=== PATIENT | female | born 1980 | race Caucasian/White ===

== ENCOUNTER 2020-02-02 03:35 | Emergency (ER) | payer BC, SELFPAY ==
--- NOTE | ~2020-02-02 | CT_ITS ---
EXAMINATION: CT abdomen pelvis w con INDICATION: Right lower quadrant pain TECHNIQUE: Computed tomographic images of the abdomen and pelvis were obtained after the administrati on of 100 cc of Omnipaque 350 intravenous contrast. The dose-length product (DLP) was 293.85 mGy-cm. Automated exposure control and iterative reconstruction technique were employed. COMPARISON: 02/10/2017 FINDINGS: Minimal dependent atelectasis is present in the lung bases. The heart size is normal. Heman giomas of the left hepatic lobe measure up to 1.9 cm. The spleen, pancreas, gallbladder, and adrenal glands are normal. The kidneys are unremarkable. No pathologically enlarged abdominal or pelvic lymph nodes are identified. A large volume of colonic stool is present. There is no free intraperitoneal g as or evidence of bowel obstruction. The mobile cecum resides in the left lower quadrant. IMPRESSION: 1. Constipation. Reviewed, dictated and finalized at location A. IMPRESSION: 1. Constipation.
[2020-02-02 03:39] VITALS: BP 116/89; PULSE 87; RESP 20; TEMP 36.6; O2SAT 100
--- NOTE | 2020-02-02 03:55 | ED.ABDPAIN ---
HPI - Abdominal Pain General Chief Complaint: Abdominal Pain Stated Complaint: RLQ pain Time Seen by Provider: 02/02/20 03:46 Source: patient Mode of arrival: ambulatory Limitations: no limitations History of Present Illness HPI narrative: Patient is a 39-year-old female who presents to the emergency department with complaint of abdominal pain. Patient locates the pain in the right lower quadrant of her abdomen. She reports onset of symptoms at approximately 5 PM last night. She states the pain initially was sharp and is now more persistent and constant. Patient states it is tender to palpation. She denies any nausea, vomiting, or diarrhea. She reports constipation symptoms over the past couple of weeks, but her last bowel movement was yesterday. Patient denies any urinary symptoms and has had a complete hysterectomy. MD elicited complaint: abdominal pain Onset (ago): hour(s) Pain Consistency: constant Quality: aching and sharp Radiation: none Migration to: no migration Exacerbating factors: other (palpation) Associated symptoms: denies other symptoms Related Data Home Medications Medication Instructions Recorded Confirmed estradiol 1 patch TOPICAL WEEKLY 02/02/20 02/02/20 meloxicam 15 mg PO DAILY 02/02/20 02/02/20 Allergies Allergy/AdvReac Type Severity Reaction Status Date / Time No Known Allergies Allergy Verified 02/02/20 03:44 Review of Systems Review of Systems: All systems reviewed & are unremarkable except as noted in HPI and below Gastrointestinal: Gastrointestinal: Reports abdominal pain, Reports constipation, Denies diarrhea, Denies nausea and Denies vomiting Genitourinary: Genitourinary: Denies hematuria and Denies dysuria PMFSH Past Medical History Medical History (Updated 02/02/20 @ 05:32 by Yamilet Apodaca MD) Endometriosis Surgical History Surgical History (Updated 02/02/20 @ 04:06 by Yamilet Apodaca MD) History of total hysterectomy with bilateral salpingo-oophorectomy (BSO) History of tubal ligation Social History Social History (Updated 02/02/20 @ 04:07 by Yamilet Apodaca MD) Smoking status: Current some day smoker Tobacco type: cigarettes and e-cigarettes Gender identity (if verbalized by the patient): Female Exam Const: General: cooperative, no acute distress and alert Nutritional Appearance: well nourished Orientation/consciousness: patient oriented x3 Limitations: no limitations HENMT: Mouth: Yes lip normal and Yes moist mucous membranes Resp: Effort & Inspection: normal respiratory effort Auscultation: clear to auscultation bilaterally Cardio: Rate: regular rate Rhythm: regular rhythm GI: GI Palp: Yes Soft to palpation, Yes Tenderness to palpation present (GI) (Focal right lower quadrant), No Guarding due to palpation present (GI) and No Rebound tenderness present Auscultation: normal bowel sounds Skin: General skin exam: normal color Neuro: General: patient oriented x3 Cognition (Neuro): normal cognition Speech: normal speech Extrem: General: normal to inspection, full ROM and no clubbing, cyanosis or edema Psych: Mental Status: mental status grossly normal Affect: normal affect Attitude: cooperative Course Course Emergency Course: Patient with findings of constipation on CT scan. No evidence for appendicitis or other serious pathology. Labs unremarkable. Patient was sleeping quietly after CT scan and does report she feels a little bit better. Discussed management of constipation and advised primary care follow-up. Vital Signs Vital signs: Vital Signs Temperature 97.9 F 02/02/20 03:39 Pulse Rate 87 02/02/20 03:39 Respiratory Rate 20 02/02/20 03:39 Blood Pressure 116/89 02/02/20 03:39 Pulse Oximetry 100 02/02/20 03:39 Temperature 97.9 F 02/02/20 03:39 Pulse Rate 87 02/02/20 03:39 Respiratory Rate 20 02/02/20 03:39 Blood Pressure 116/89 02/02/20 03:39 Pulse Oximetry 100 02/02/20 03:39
[2020-02-02 04:11] LABS: Basophils Absolute Auto 0.1 K/mm3 (0.0-0.1); Eosinophils Absolute Auto 0.2 K/mm3 (0-0.3); Eosinophils Percent Auto 2.5 % (0-4.4); Hematocrit 41.1 % (37.0-47.0); Hemoglobin 13.3 g/dL (12.0-15.0); Immature Granulocyte Absolute 0.03 K/mm3 (0.00-0.031); Immature Granulocyte Percent A 0.4 % (0-0.5); Lymphocytes Absolute Auto 2.92 K/mm3 (0.9-3.2); Lymphocytes Percent Auto 36.4 % (18.3-44.2); Mean Corpuscular HGB Conc 32.4 g/dl (32-36); Mean Corpuscular Hemoglobin 31.2 pg (26-34); Mean Corpuscular Volume 96.5 fl (80-100); Mean Platelet Volume 10.3 fl (7.4-10.4); Monocytes Absolute Auto 0.6 K/mm3 (0.1-0.6); Monocytes Percent Auto 7.1 % (2.6-8.5); Neutrophils Absolute Auto 4.2 K/mm3 (1.3-6.7); Neutrophils Percent Auto 52.6 % (45.5-73.1); Platelet Count Result 365 k/mm3 (150-375); Red Blood Count 4.26 M/mm3 (4.2-5.4); Red Cell Distribution Width 13.8 % (11.5-14.5)
[2020-02-02 04:16] LABS: Add Urine Microscopic? YES; Appearance Urine Cloudy (Clear); Bacteria Urine Trace /hpf; Bilirubin Urine Negative (Negative); Blood Urine 1+ (Negative); Color Urine Yellow (Yellow); Glucose Urine UA Negative (Negative); Ketones Urine Negative (Negative); Leukocyte Esterase Ur Negative LEU/UL (Negative); Mucus Urine Few /lpf; Nitrate Urine Negative (Negative); Protein Urine Negative (Negative); Specific Grav Ur 1.018 (1.001-1.035); Squamous Epithelial Cell Urine Many /hpf (Few); Urobilinogen Urine Negative mg/dL (<2.0); WBC Urine 0-3 /hpf
[2020-02-02 04:27] LABS: Alanine Aminotransferase 32 U/L (4-35); Albumin Level 4.9 g/dL (3.5-5.1); Alkaline Phosphatase 44 U/L (38-126); Aspartate Amino Transferase 35 U/L (14-36); Bilirubin,Total 0.3 mg/dL (0.2-1.3); Blood Urea Nitrogen 13 mg/dL (7-17); Calcium 9.1 mg/dL (8.4-10.2); Carbon Dioxide 29 mmol/L (22-30); Chloride 108 mmol/L (98-107); Estimated Glomerular Filt Rate > 60; Glucose 88 mg/dL (65-105); Lipase 218 U/L (23-300); Potassium 4.5 mmol/L (3.4-5.0); Sodium 143 mmol/L (137-145)
[2020-02-02 05:42] VITALS: BP 100/74; PULSE 70; RESP 20; O2SAT 100
== END 2020-02-02 05:42 | disposition home or self-care (01) ==
PROVIDERS: Emergency Provider Emergency Medicine
DX: R10.31 Right lower quadrant pain (principal); K59.00 Constipation, unspecified; N80.9 Endometriosis, unspecified; F17.210 Nicotine dependence, cigarettes, uncomplicated
CPT/HCPCS: 36415; 74177; 80053; 81001; 83690; 85025; 99284; Q9967

== ENCOUNTER 2020-09-01 19:04 | Emergency (ER) | payer BC, SELFPAY ==
--- NOTE | ~2020-09-01 | XR_ITS ---
EXAMINATION: XR chest 1V portable DATE: 09/01/2020 19:55 INDICATION: Shortness of breath. Midsternal chest pain. TECHNIQUE: frontal view of the chest was obtained. COMPARISON: Chest radiograph dated 11/19/2018 FINDINGS: The lungs are clear with no focal airspace opacities, pulmonary edema, pleural effusion or pneumothor ax. The cardiomediastinal silhouette is normal. Visualized bones and soft tissues are unremarkable. IMPRESSION: 1. Normal chest radiograph. Reviewed, dictated and finalized at location H. PAPER PRINTER HELPER IMPRESSION: 1. Normal chest radiograph.
[2020-09-01 19:16] VITALS: BP 132/81; PULSE 93; RESP 20; TEMP 36.6; O2SAT 100
--- NOTE | 2020-09-01 19:30 | ED.SOB ---
HPI - SOB/Dyspnea General Chief Complaint: Shortness of Breath/Dyspnea Stated Complaint: sob, cp, waiting for covid test Time Seen by Provider: 09/01/20 19:23 History of Present Illness HPI Narrative: Cough, congestion, pleuritic chest pain for a few days. FRASER starting today. Her boyfriend tested positive for COVID-19. She has a COVID-19 test pending. Related Data Home Medications Medication Instructions Recorded Confirmed estradiol 1 patch TOPICAL WEEKLY 02/02/20 02/02/20 meloxicam 15 mg PO DAILY 02/02/20 02/02/20 Allergies Allergy/AdvReac Type Severity Reaction Status Date / Time No Known Allergies Allergy Verified 02/02/20 03:44 Review of Systems Review of Systems: All systems reviewed & are unremarkable except as noted in HPI and below Constitutional: Constitutional: Denies fever(s) ENT: Denies sore throat Cardiovascular: Cardiovascular: Reports chest pain Respiratory: Respiratory: Reports chest congestion, Reports cough and Reports dyspnea Gastrointestinal: Gastrointestinal: Denies nausea Genitourinary: Genitourinary: Denies dysuria Musculoskeletal: Musculoskeletal: Denies back pain Neurologic: Denies dizziness and Denies weakness [facility] Past Medical History Medical History Endometriosis Surgical History Surgical History History of total hysterectomy with bilateral salpingo-oophorectomy (BSO) History of tubal ligation Social History Social History Smoking status: Current some day smoker Tobacco type: cigarettes and e-cigarettes/vaping Gender identity (if verbalized by the patient): Female Exam Const: General: healthy appearing, no acute distress and alert Orientation/consciousness: patient oriented x3 HENMT: Head: normal to inspection Neck: Neck: normal visual inspection and no lymphadenopathy Chest: Chest palpation & inspection: no tenderness Resp: Effort & Inspection: normal respiratory effort Auscultation: clear to auscultation bilaterally, no rales, no rhonchi and no wheezes Cardio: Jugular venous distension: no JVD Rate: regular rate Rhythm: regular rhythm Heart sounds: no murmurs GI: Inspection: non-distended GI Palp: Yes Soft to palpation and No Tenderness to palpation present (GI) Skin: General skin exam: normal color Neuro: General: patient oriented x3 and moves all extremities Speech: normal speech Extrem: General: no edema Psych: Appearance: well kempt Affect: normal affect Course Vital Signs Vital signs: Vital Signs Temperature 36.6 C 09/01/20 19:16 Pulse Rate 93 09/01/20 19:16 Respiratory Rate 20 09/01/20 19:16 Blood Pressure 132/81 09/01/20 19:16 Pulse Oximetry 100 09/01/20 19:16 Temperature 36.6 C 09/01/20 19:16 Pulse Rate 83 09/01/20 21:24 Respiratory Rate 18 09/01/20 21:24 Blood Pressure 113/65 09/01/20 21:24 Pulse Oximetry 98 09/01/20 21:24 MDM - SOB/Dyspnea MDM Narrative Medical decision making narrative: She appears well with normal vitals and negative chest x-ray. I will discharge her home to wait for her test results. Medical Records Attestation: I reviewed the patient's medical records. Imaging Data Radiologist's impression: ITS Impressions Chest X-Ray 09/01/20 19:56 IMPRESSION: 1. Normal chest radiograph. Discharge Plan Discharge Clinical Impression: FRASER (dyspnea on exertion), Suspected 2019-nCoV infection Patient Disposition: Home, Self-Care Condition: Stable Instructions: COVID-19 (Coronavirus Disease 2019) (ED) Prescriptions: New dexamethasone 6 mg tablet 6 mg PO DAILY Qty: 10 RF: 0 No Action meloxicam 15 mg tablet 15 mg PO DAILY RF: 0 estradiol 0.05 mg/24 hr patch weekly 1 patch topical WEEKLY RF: 0 Follow-up/Referrals: PHYSICIAN NOT ON STAFF,NONST
--- NOTE | 2020-09-01 19:39 | ECG_ITS ---
Measurements Intervals [place] Rate: 86 P: 18 NM: 124 QRS: 27 QRSD: 80 T: 30 QT: 341 QTc: 409 Interpretive Statements SINUS RHYTHM BASELINE ARTIFACT- I, III, AVL, V3 NORMAL ECG Electronically Signed On 09-02-2020 7:23:06 CONTROL PANEL ASSEMBLER by Anil Dietrich D.O.
[2020-09-01 21:24] VITALS: BP 113/65; PULSE 83; RESP 18; O2SAT 98
== END 2020-09-01 21:25 | disposition home or self-care (01) ==
PROVIDERS: Emergency Provider Emergency Medicine
DX: R06.00 Dyspnea, unspecified (principal); Z20.828 Contact with and (suspected) exposure to other viral communicable diseases; N80.9 Endometriosis, unspecified; F17.210 Nicotine dependence, cigarettes, uncomplicated
CPT/HCPCS: 71045; 93005; 99283

== ENCOUNTER 2022-02-28 12:17 | Emergency (ER) | payer BC, SELFPAY ==
--- NOTE | ~2022-02-28 | XR_ITS ---
EXAMINATION: XR foot RT min 3V DATE: 02/28/2022 12:50 INDICATION: Right foot injury in the region of the metatarsals TECHNIQUE: Dorsoplantar, two oblique and lateral views of the right foot were obtained. COMPARISON: None. FINDINGS: Bone alignment is normal. No fracture. Mild osteoarthritis at the first metatarsophalangeal and a few interphalangeal joints. No erosions or periosteal reaction. Bunion with mild soft tissue thickening overlying the medial head of the first metatarsal. IMPRESSION: 1. No acute osseous abnormality. Reviewed, dictated and finalized at location B.
[2022-02-28 12:30] VITALS: BP 120/70; PULSE 88; RESP 18; TEMP 36.8; O2SAT 98
--- NOTE | 2022-02-28 12:31 | ED.LOWEXIN ---
HPI - Extremity Injury (Lower) General Chief Complaint: Extremity Injury, Lower Stated Complaint: Right Foot Pain Time Seen by Provider: 02/28/22 12:31 Source: patient, RN notes reviewed and old records reviewed Mode of arrival: ambulatory Limitations: no limitations History of Present Illness HPI Narrative: 41-year-old female presents to the [facility] with complaints of right dorsal aspect foot pain since 6 PM last night. Patient states that she was walking and wearing heels when she rolled her foot. States that she has fractured that foot before. Currently wearing a short leg boot that she had from a previous foot fracture per patient Related Data Home Medications Medication Instructions Recorded Confirmed estradiol [Lyllana] 1 patch TRANSDERMAL DIRECTED 02/28/22 02/28/22 Allergies Allergy/AdvReac Type Severity Reaction Status Date / Time No Known Allergies Allergy Verified 02/28/22 12:22 Review of Systems Review of Systems: All systems reviewed & are unremarkable except as noted in HPI and below Constitutional: Constitutional: Reports no additional constitutional complaints Eyes: Eyes: Reports no additional eye complaints ENT: Reports system reviewed and no additional complaints, except as documented Cardiovascular: Cardiovascular: Reports no additional cardiovascular complaints Respiratory: Respiratory: Reports no additional respiratory complaints Gastrointestinal: Gastrointestinal: Reports no additional gastrointestinal complaints Musculoskeletal: Musculoskeletal: Reports as per HPI Comments: Dorsal aspect right foot Integumentary/Breasts: Skin/Breast: Reports system reviewed and no additional complaints, except as docu Neurologic: Reports system reviewed and no additional complaints, except as documented Psychiatric: Psychiatric: Reports no additional psychiatric complaints Allergic/Immunologic: Allergic/Immunologic: Reports no additional allergic/immunologic complaints [facility] Past Medical History Medical History Chronic low back pain Endometriosis Surgical History Surgical History History of total hysterectomy with bilateral salpingo-oophorectomy (BSO) History of tubal ligation Family History Family History Mother Lung cancer Cervical cancer screening Social History Social History Smoking status: Current every day smoker Tobacco type: cigarettes and e-cigarettes/vaping Second hand tobacco smoke exposure: No Alcohol intake: current Substance use: never Substance use type: does not use Gender identity (if verbalized by the patient): Female Sexual Orientation (if Verbalized by the Patient): Straight or Heterosexual Comments At the time of my signature, I reviewed and agree with the nursing past medical, surgical, social, and family history. There is no relevant family history pertinent to the patient complaint. Exam Const: General: healthy appearing, no acute distress and alert Nutritional Appearance: well nourished Orientation/consciousness: patient oriented x3 Limitations: no limitations HENMT: Head: normal to inspection Ears: external ears normal Eyes: Pupils: Equal, round and reactive pupils present Neck: Neck: normal visual inspection, no lymphadenopathy and no meningeal signs Chest: Chest palpation & inspection: normal inspection of the chest Resp: Effort & Inspection: normal respiratory effort Auscultation: clear to auscultation bilaterally Cardio: Rate: regular rate Rhythm: regular rhythm : General: Yes no CVA tenderness Back/Spine/Pelvis: Back: no CVA tenderness Skin: General skin exam: normal color Rashes: no rashes Neuro: General: patient oriented x3, moves all extremities, no meningeal signs and no focal motor de
== END 2022-02-28 13:11 | disposition home or self-care (01) ==
PROVIDERS: Emergency Provider Nurse Practitioner; PCP Family Medicine
DX: S93.601A Unspecified sprain of right foot, initial encounter (principal); X50.9XXA Other and unspecified overexertion or strenuous movements or postures, initial encounter; S90.31XA Contusion of right foot, initial encounter; N80.9 Endometriosis, unspecified
CPT/HCPCS: 73630; 99213; G0463

== ENCOUNTER 2022-03-10 13:52 | Outpatient (CLI) | payer BC, SELFPAY ==
--- NOTE | ~2022-03-10 | CT_ITS ---
EXAMINATION: CT foot RT wo con DATE: 03/10/2022 14:09 INDICATION: Bruising over the dorsum of the foot post fall 11 days prior TECHNIQUE: High resolution computed tomography (CT) of the right foot was performed without intraveno us contrast. Additional sagittal and coronal reconstructions were performed. Automated exposure contr ol and iterative reconstruction technique were employed. The dose-length product was 391.83 mGy-cm. COMPARISON: None FINDINGS: Minimally displaced mildly comminuted fractures of the medial cuneiform underlying both the dorsal as pect of the distal articular surface as well as extending along the lateral margin of the distal medi al cuneiform along the footplate of the Lisfranc ligament. Additional minimally displaced fracture in volving the plantar aspect of the base of the second metatarsal. No other fractures identified. Align ment remains essentially anatomic. Mild osteoarthritis of the first metatarsophalangeal joint. IMPRESSION: 1. Minimally displaced fractures of the plantar base of the second metatarsal and mildly comminuted f racture of the distal medial cuneiform which include the footplates of the Lisfranc ligament. Reviewed, dictated and finalized at location B. IMPRESSION: 1. Minimally displaced fractures of the plantar base of the second metatarsal a nd mildly comminuted fracture of the distal medial cuneiform which include the footplates of the Lisfranc ligament.
== END 2022-03-10 13:53 | disposition home or self-care (01) ==
PROVIDERS: PCP Family Medicine; Visit Provider Physician Assistant
DX: M19.071 Primary osteoarthritis, right ankle and foot (principal); S99.921A Unspecified injury of right foot, initial encounter; M79.671 Pain in right foot
CPT/HCPCS: 73700

== ENCOUNTER 2022-03-22 14:16 | Outpatient (CLI) | payer BC, SELFPAY ==
--- NOTE | ~2022-03-22 | MR_ITS ---
EXAMINATION: MR foot RT wo con DATE: 03/22/2022 15:02 INDICATION: Ligament injury at the right foot presenting with TECHNIQUE: Magnetic resonance imaging (MRI) of the right fore/mid foot was performed without intraven ous contrast. Sequences included sagittal T1-weighted FSE, sagittal fluid sensitive FSE STIR, coronal PD-weighted FS FSE, coronal T1-weighted FSE, axial PD-weighted FS FSE, and axial PD-weighted FSE. COMPARISON: CT dated 03/10/2022 FINDINGS: Marrow edema associated with the previous noted minimally displaced avulsion fracture involving the m edial cuneiform footplate of the Lisfranc ligament complex and a nondisplaced intra-articular fractur e at the dorsal aspect of the medial cuneiform extending to the first tarsal metatarsal joint. The Li sfranc ligament itself appears to remain intact. Additional marrow edema associated with nondisplaced fractures at the plantar base of the second metatarsal and the dorsal margin of the distal articular surfaces of the middle and lateral cuneiforms and the cuboid. Finally there is prominent marrow tonja a such with a nondisplaced fracture extending transversely across the anterior process of the calcane us which parallels the calcaneocuboid articulation. There does appear to be nondisplaced fracture david e extending to the articular cortex without evident fracture gap or incongruity at the articular surf nannette. Alignment remains essentially anatomic. No other fractures identified. Joint spaces appear joaquin l. No joint effusions. The collateral ligament complexes at the metatarsophalangeal and interphalange al joints are normal. The visualized portion of the flexor and extensor tendons are normal. Intrinsic musculature of the foot is unremarkable. IMPRESSION: 1. Lisfranc joint injury with minimally distracted avulsion fracture of the medial cuneiform footplat e of the Lisfranc ligament complex and nondisplaced fractures at the base of the second metatarsal an d along the distal margin of each of the tarsal bones in the distal tarsal row 2. Additional nondisplaced impaction fracture, likely intra-articular long the distal aspect of the a nterior process of the calcaneus. Reviewed, dictated and finalized at location A. IMPRESSION: 1. Lisfranc joint injury with minimally distracted avulsion fracture of the med ial cuneiform footplate of the Lisfranc ligament complex and nondisplaced fract ures at the base of the second metatarsal and along the distal margin of each o f the tarsal bones in the distal tarsal row 2. Additional nondisplaced impaction fracture, likely intra-articular long the distal aspect of the anterior process of the calcaneus.
== END 2022-03-22 14:17 ==
LOC: MICIMG 14:17
PROVIDERS: PCP Family Medicine; Visit Provider Podiatrist Foot & Ankle Surgery
DX: S92.064A Nondisplaced intraarticular fracture of right calcaneus, initial encounter for closed fracture (principal)
CPT/HCPCS: 73718

== ENCOUNTER 2024-12-13 10:55 | Outpatient (CLI) | payer OTHER, SELFPAY ==
[2024-12-13 11:48] LABS: Strep Group A RT-PCR NOT DETECTED (Negative)
--- OUTSIDE RECORDS SUMMARY | 2024-12-13 11:52 | XMS_ITS | Clinical Summary ---
Author Organization [facility] [address] [place] [address] [address] [place] [address] Care Team Providers Care Proof Plate Maker Name Role Phone Judit Freeman MD Primary Care Provider [phone] Allergies No known active allergies Medications estradiol (CLIMARA) 0.05 mg/24 hr patch Apply 1 Patch to skin as directed every 7 days. Active meloxicam (MOBIC) 15 mg tabletIndicatio ns:Acute midline low back pain with bilateral sciatica Take 1 Tablet (15 mg) by mouth daily. 30 Tablet 08/02/2019 Active tiZANidine (ZANAFLEX) 2 mg TabletIndicatio ns:Acute midline low back pain with bilateral sciatica Take 1 Tablet (2 mg) by mouth nightly as needed for Spasm. 30 Tablet 2 08/02/2019 Active Active Problems Problem Noted Date Diagnosed Date Lumbar disc prolapse with root compression 10/22 Family History Medical History Relation Name Comments Unknown Father Lung Cancer Mother Ovarian Cancer Mother Relation Name Status Comments Father Mother Social History Tobacco Use Types Packs/Day Years Used Date Smoking Tobacco: Never Smokeless Tobacco: Never Alcohol Use Standard Drinks/Week Comments Yes 0 (1 standard drink = 0.6 oz pur e alcohol) moderate Comments Unknown Sex and Gender Information Value Date Recorded Sex Assigned at Not on file Legal Sex Female 2:42 PM CDT Gender Identity Not on file Sexual Orientation Not on file 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 Not on file Not on file Not on file Not on file Not on file Not on file Not on file Last Filed Vital Signs Vital Sign Reading Time Taken Comments Blood Pressure 110/68 08/02/2019 3:38 PM CDT Pulse 79 08/02/2019 3:38 PM CDT Temperature - - Respiratory Rate - - Oxygen Saturation 98% 08/02/2019 3:38 PM CDT Inhaled Oxygen Concentration - - Weight 56.7 kg (125 lb) 10/24/2019 12:41 PM [employer] Height 167.6 cm (5' 6 ) 10/24/2019 12:41 PM [employer] Body Mass Index 20.18 10/24/2019 12:41 PM [employer] Plan of Treatment Health Maintenance Due Date Last Done Comments DTAP/TDAP/TD VACCINES (1 - Tdap) 1997 HEPATITIS B VACCINES (1 of 3 - 19+ 3-dose series) 1997 CERVICAL CANCER SCREENING 2008 BREAST CANCER SCREENING 2018 COLORECTAL SCREENING 2023 Colorectal Cancer Screening 2023 FIT-DNA Q 3 years 2023 FIT/FOBT Q 1 year 2023 Flex Sig/CT Colonography Q 5 years 2023 INFLUENZA VACCINE (#1) 2024 Preventative Visit- Commercial 10/09/2024 HPV VACCINES Aged Out No longer eligi ble based on patient's age to complete this topic PNEUMOCOCCAL VACCINE 0-49 YEARS Aged Out No longer eligible based on patient's age to complete this topic Insurance BLUE ACCESS/TRUE BLUE PPO Care Teams Proof Plate Maker Relationship Specialty Start Date End Date Judit Freeman MD [address] [place] [address] PCP - General Family Practice 08/02/19
[2024-12-13 12:49] LABS: Influenza A QL RT-PCR Negative (Negative); Influenza B QL RT-PCR Negative (Negative); SARS-CoV-2 RNA PCR Negative (Negative)
== END 2024-12-13 10:56 | disposition home or self-care (01) ==
PROVIDERS: PCP Family Medicine; Visit Provider Physician Assistant Medical
DX: J02.9 Acute pharyngitis, unspecified (principal); R50.9 Fever, unspecified; R52 Pain, unspecified
CPT/HCPCS: 87636; 87651